=== PATIENT | male | born 1995 | race Caucasian/White ===

== ENCOUNTER 2016-11-29 18:27 | Emergency (ER) | payer OTHER ==
[~2016-11-29] VITALS: Ht 180.3 cm; Wt 96.5 kg
[2016-11-29 18:31] VITALS: TEMP 36.3; Ht 180.3 cm; Wt 96.5 kg
[2016-11-29] MEDS ORDERED: SODIUM CHLORIDE 0.9% 1000ML 1,000 ML IV STA ×2 (20:05→20:13)
--- NOTE | 2016-11-29 20:12 | EMERGENCY ROOM VISIT NOTE ---
History Report prepared by Kylah: Maribell Sotelo Under the Supervision of: Dr. Rajesh Bingham D.O. First contact with patient: 20:06 Chief Complaint: ABDOMINAL PAIN Stated Complaint: INTENSE PAIN IN LOWER LEFT ABDOMEN Nursing Triage Summary: pt reports lower left abd pain started yetserday worse this am upon waking getting worse. denies any n/v/c/d/ History of Present Illness The patient is a 21 year old male who presents to the Emergency Room with complaints of worsening left abdominal pain beginning last night. The patient states he had to sit down on a bench while walking to class because of his abdominal pain. He states that moving exacerbates the pain. The patient denies back pain, testicular pain, and fevers. The patient reports being constipated yesterday. He states that he drinks alcohol, but denies tobacco use. The patient denies a history of an appendectomy. Source of History: patient Onset: last night Position: abdomen Timing: worsening Modifying Factors (Worsening): movement Associated Symptoms: No fevers, No back pain Note: also denies: testicular pain Review of Systems See HPI for pertinent positives & negatives. A total of 10 systems reviewed and were otherwise negative. Past Medical & Surgical Medical Problems: (1) No active medical problems Family History No pertinent family history Social History Smoking Status: Never Smoker Alcohol Use: occasionally Housing Status: lives with friends Occupation Status: [employer] student Current/Historical Medications No Active Prescriptions or Reported Meds Allergies Coded Allergies: No Known Allergies (Unverified , 11/29/16) Physical Exam Vital Signs Date Time Temp Pulse Resp B/P (MAP) Pulse Ox O2 Delivery O2 Flow Rate FiO2 11/29/16 23:58 77 16 151/77 98 11/29/16 22:53 91 20 173/92 96 Room Air 11/29/16 20:36 85 11/29/16 20:30 78 18 14/89 98 Room Air 11/29/16 18:31 36.3 78 18 152/84 97 Room Air Physical Exam GENERAL: Patient is awake, alert, and in no acute distress. Patient is resting comfortably and showing no signs of anxiety EYES: The conjunctivae are clear. The pupils are round and reactive. EARS, NOSE, MOUTH AND THROAT: The nose is without any evidence of any deformity. Mucous membranes are moist tongue is midline NECK: The neck is nontender and supple. RESPIRATORY: Normal respiratory effort is noted there is no evidence of wheezing rhonchi or rales CARDIOVASCULAR: Regular rate and rhythm noted there no murmurs rubs or gallops normal S1 normal S2 GASTROINTESTINAL: The abdomen is mildly distended with significant periumbilical tenderness to palpation. Mild guarding in left lower quadrant and suprapubic region. BACK: No midline tenderness or or step-off noted range of motion in flexion extension as well as rotation no signs of muscle spasm noted MUSCULOSKELETAL/EXTREMITIES: There is no evidence of gross deformity full range of motion is noted in the hips and shoulders SKIN: There is no obvious evidence of any rash. There are no petechiae, pallor or cyanosis noted. NEUROLOGIC: Patient is awake alert and oriented x3 Medical Decision & Procedures ER Provider Diagnostic Interpretation: Preliminary Findings Only See Final Report For Complete Findings CT ABDOMEN & PELVIS: Inflammation adjacent to the anterior aspect of the descending colon associated with a small fat lobule (Series 2, Images 51-54) . Findings are consistent with epiploic appendagitis. No evidence of bowel obstruction, significant bowel wall thickening, free intraperitoneal air or abscess. No evidence of acute appendicitis. Small amount of free fluid in the right pelvis. Radiologist: Demetrice Michelle MD Study ready at 23:10 and initial results transmitted at 23:26 Laboratory Results 11/29/16 20:10 Red Blood Count 5.29, Mean Corpuscular Volume 89.2, Mean Corpuscular Hemoglobin 30.4, Mean Corpuscular Hemoglobin Concent 34.1, Mean Platelet Volume 11.6, Neutrophils (%) (Auto) 72.7, Lymphocytes (%) (Auto) 20.1, Monocytes (%) (Auto) 5.7, Eosinophils (%) (Auto) 1.1, Basophils (%) (Auto) 0.2, Neutrophils # (Auto) 6.68, Lymphocytes # (Auto) 1.85, Monocytes # (Auto) 0.52, Eosinophils # (Auto) 0.10, Basophils # (Auto) 0.02 11/29/16 20:10 Test 11/29/16 20:10 11/29/16 20:30 White Blood Count 9.19 K/uL (4.8-10.8) Red Blood Count 5.29 M/uL (4.7-6.1) Hemoglobin 16.1 g/dL (14.0-18.0) Hematocrit 47.2 % (42-52) Mean Corpuscular Volume 89.2 fL (80-100) Mean Corpuscular Hemoglobin 30.4 pg (25-34) Mean Corpuscular Hemoglobin Concent 34.1 g/dl (32-36) Platelet Count 168 K/uL (130-400) Mean Platelet Volume 11.6 fL (7.4-10.4) Neutrophils (%) (Auto) 72.7 % Lymphocytes (%) (Auto) 20.1 % Monocytes (%) (Auto) 5.7 % Eosinophils (%) (Auto) 1.1 % Basophils (%) (Auto) 0.2 % Neutrophils # (Auto) 6.68 K/uL (1.4-6.5) Lymphocytes # (Auto) 1.85 K/uL (1.2-3.4) Monocytes # (Auto) 0.52 K/uL (0.11-0.59) Eosinophils # (Auto) 0.10 K/uL (0-0.5) Basophils # (Auto) 0.02 K/uL (0-0.2) RDW Standard Deviation 41.8 fL (36.4-46.3) RDW Coefficient of Variation 12.8 % (11.5-14.5) Immature Granulocyte % (Auto) 0.2 % Immature Granulocyte # (Auto) 0.02 K/uL (0.00-0.02) Anion Gap 7.0 mmol/L (3-11) Est Creatinine Clear Calc Drug Dose 148.9 ml/min Estimated GFR () 135.5 Estimated GFR (Non- 116.9 BUN/Creatinine Ratio 24.4 (10-20) Calcium Level 9.2 mg/dl (8.5-10.1) Total Bilirubin 0.3 mg/dl (0.2-1) Direct Bilirubin < 0.1 mg/dl (0-0.2) Aspartate Amino Transf (AST/SGOT) 18 U/L (15-37) Alanine Aminotransferase (ALT/SGPT) 27 U/L (12-78) Alkaline Phosphatase 83 U/L (45-117) Total Protein 7.6 gm/dl (6.4-8.2) Albumin 4.2 gm/dl (3.4-5.0) Lipase 137 U/L (73-393) Urine Color YELLOW Urine Appearance CLEAR (CLEAR) Urine pH 6.5 (4.5-7.5) Urine Specific Lutz 1.025 (1.000-1.030) Urine Protein NEG (NEG) Urine Glucose (UA) NEG (NEG) Urine Ketones NEG (NEG) Urine Occult Blood NEG (NEG) Urine Nitrite NEG (NEG) Urine Bilirubin NEG (NEG) Urine Urobilinogen NEG (NEG) Urine Leukocyte Esterase SMALL (NEG) Urine WBC (Auto) 10-30 /hpf (0-5) Urine RBC (Auto) 0-4 /hpf (0-4) Urine Hyaline Casts (Auto) 0 /lpf (0-5) Urine Epithelial Cells (Auto) 10-20 /lpf (0-5) Urine Bacteria (Auto) NEG (NEG) Laboratory results per my review. Medications Administered Medications (Trade) Dose Ordered Sig/Elías Route Start Time Stop Time Status Last Admin Dose Admin Sodium Chloride 1,000 ml @ 200 mls/hr Q5H STAT IV 11/29/16 20:05 11/30/16 01:04 DC 11/29/16 22:39 200 MLS/HR Sodium Chloride 1,000 ml @ 999 mls/hr Q1H1M STAT IV 11/29/16 20:13 11/29/16 21:13 DC 11/29/16 20:30 999 MLS/HR ED Course 2002: The patient was evaluated in room B10. A complete history and physical examination were performed. 2005: Ordered Sodium Chloride 1,000 ml @ 200 mls/hr IV. 2013: Ordered Sodium Chloride 1,000 ml @ 999 mls/hr IV. 2325: I updated the patient on his results. 2340: Upon reevaluation, the patient is resting. I discussed the results and treatment plan with him. He verbalized agreement of the treatment plan. He was discharged home. Medical Decision Differential diagnosis: Etiologies such as appendicitis, diverticulitis, PUD, biliary pathology, UTI, pancreatitis, obstruction, mesenteric ischemia, aortic pathology, infections, inflammatory bowel disease, renal colic, as well as others were entertained. Nursing notes reviewed. The patient is a 21-year-old male who presented to the emergency department for an evaluation of left-sided abdominal pain. The patient very significant left- sided abdominal pain and I felt was exam was consistent with significant guarding. For this reason CT abdomen and pelvis was obtained. The patient did not have an elevated white blood cell count. He was treated with IV fluids in the emergency department and did not wish to have any pain medication. I discussed the patient's laboratory radiographic studies with him and his family members. At this time he was found have signs of epiploic appendagitis on CAT scan. He was encouraged to rest and avoid any strenuous activity. He was encouraged to follow-up with [facility] [address] in a few days for reevaluation but return to the emergency department immediately if symptoms change worsen or need arises. Medication Reconcilliation Current Medication List: was personally reviewed by me Blood Pressure Screening Patient's blood pressure: Elevated blood pressure Blood pressure disposition: Elevated BP felt to be situational Impression Primary Impression: Abdominal pain, left lower quadrant Additional Impression: Epiploic appendagitis Scribe Attestation The scribe's documentation has been prepared under my direction and personally reviewed by me in its entirety. I confirm that the note above accurately reflects all work, treatment, procedures, and medical decision making performed by me. Departure Information Dispostion Home / Self-Care Prescriptions No Active Prescriptions or Reported Meds Referrals No Doctor, Assigned (PCP) Forms HOME CARE DOCUMENTATION FORM, IMPORTANT VISIT INFORMATION, School Instructions, Work Instructions Patient Instructions Abdominal Pain, My [facility] Additional Instructions Continue using Motrin and Tylenol as directed for pain. Call [facility] to schedule a follow-up appointment. Rest and avoid any strenuous activity. Return to the emergency department immediately if symptoms change worsen or the need arises. Epiploic appendagitis MANAGEMENT There are limited data from case reports to guide the management of patients with epiploic appendagitis. Conservative management Patients can be managed conservatively with oral anti- inflammatory medications (eg, ibuprofen 600 mg PO every eight hours for four to six days) and if needed a short course of opiates (acetaminophen/codeine 300/30 every six hours) for four to seven days [11,31-34]. Anti-inflammatories provide analgesia but probably do not modify the disease course. Patients usually do not require hospitalization or antibiotics [35]. (See 'Natural history and disease course' below.) Surgery We reserve surgical management for patients whose symptoms fail to improve with conservative management, those with new or worsening symptoms (eg, high fever, progressive pain, nausea, vomiting, or inability to tolerate an oral diet), or complications (eg, intussusception, bowel obstruction, abscess) that cannot be managed nonoperatively. The inflamed appendage should be ligated and resected [36]. NATURAL HISTORY AND DISEASE COURSE Epiploic appendagitis is a benign and self-limiting condition. Complete resolution without surgical intervention usually occurs between 3 to 14 days [11 ,27,31,32]. The risk of recurrence has not been described but is probably very low. Rarely, inflamed appendages can adhere to the abdominal wall or other viscera predisposing to intestinal obstruction and intussusception [37]. Inflamed and necrotic appendages can also rarely progress to abscess formation. There are other less common conditions affecting the epiploic appendices. They can slide into a femoral, umbilical, or inguinal hernia sac where they may remain without causing symptoms or (less commonly) incarcerate with or without torsion [12,38]. The appendices can also calcify, cast off, and lie free as foreign bodies (corpora aliena) in the peritoneal cavity or become surrounded by omental adhesions [19]. Epiploic appendages are thought to represent the most frequent source of intraperitoneal loose bodies, which are usually found in the pelvis [39]. These may become secondarily attached elsewhere in the abdomen and can be confused with a neoplastic process. Problem Qualifiers
[2016-11-29 20:26] LABS: BASO % 0.2 %; BASO ABS # 0.02 K/uL (0-0.2); COMPLETE YES; EOS % 1.1 %; HEMATOCRIT 47.2 % (42-52); IG% 0.2 %; LYMPH % 20.1 %; LYMPH ABS # 1.85 K/uL (1.2-3.4); MEAN CELL VOLUME 89.2 fL (80-100); MEAN CORPUSCULAR HEMOGLOBIN 30.4 pg (25-34); MEAN CORPUSCULAR HGB CONC 34.1 g/dl (32-36); MEAN PLATELET VOLUME 11.6 fL (7.4-10.4); MONO % 5.7 %; NEUT % 72.7 %; PLATELET COUNT 168 K/uL (130-400); RED BLOOD COUNT 5.29 M/uL (4.7-6.1); WHITE BLOOD COUNT 9.19 K/uL (4.8-10.8)
[2016-11-29 20:44] LABS: MANUAL MICROSCOPIC REQUIRED? NO; REVIEW REQ? NO; URINE APPEARANCE CLEAR (CLEAR); URINE BILIRUBIN NEG (NEG); URINE COLOR YELLOW; URINE NITRITE NEG (NEG); URINE PH 6.5 (4.5-7.5); URINE SPECIFIC GRAVITY 1.025 (1.000-1.030); UROBILINOGEN NEG (NEG); ZZUR CULT IF INDIC CLEAN CATCH YES
[2016-11-29 20:44] LABS: BLOOD UREA NITROGEN 23 mg/dl (7-18); BUN/CREATININE RATIO 24.4 (10-20); CALCIUM 9.2 mg/dl (8.5-10.1); CARBON DIOXIDE 25 mmol/L (21-32); CHLORIDE 109 mmol/L (98-107); CREATININE 0.93 mg/dl (0.60-1.40); GLUCOSE 99 mg/dl (70-99); POTASSIUM 3.8 mmol/L (3.5-5.1); SODIUM 141 mmol/L (136-145)
[2016-11-29 20:47] LABS: ALKALINE PHOSPHATASE 83 U/L (45-117); ALT/SGPT 27 U/L (12-78); AST/SGOT 18 U/L (15-37)
[2016-11-29] MEDS ORDERED: OPTIRAY 320 IV PRN (22:45)
[2016-11-29 23:58] VITALS: BP 151/77; PULSE 77; O2SAT 98
--- NOTE | 2016-11-30 07:05 | DIAGNOSTIC IMAGING REPORT ---
ABD/PELVIS IV AND ORAL CONT CLINICAL HISTORY: 21 years-old Male presenting with LLq pain. TECHNIQUE: Multidetector CT of the abdomen and pelvis was performed after the administration of oral and intravenous contrast. IV contrast: 116 mL of Optiray 320. A dose lowering technique was used consistent with the principles of ALARA (as low as reasonably achievable). COMPARISON: None. CT DOSE (mGy.cm): The estimated cumulative dose is 505.95 mGy.cm. FINDINGS: [employer] topogram: Unremarkable. Lung bases: Minimal dependent changes likely atelectasis. Normal heart size. No pericardial or pleural effusion. Liver: Normal morphology. No liver lesion. Patent hepatic vasculature. Biliary: No intrahepatic or extrahepatic biliary ductal dilatation. Normal gallbladder. Pancreas: Normal. Spleen: Normal. Adrenal glands: Normal. Kidneys and ureters: Normal. No hydronephrosis. Bladder: Normal. Pelvic organs: Prostate and seminal vesicles normal. Bowel: Along the anterior aspect of the descending colon is a focus of central fat density with surrounding thin rim of soft tissue density and fat infiltration consistent with epiploic appendagitis. Mild stool burden in the descending and sigmoid colon. Normal appendix. No bowel obstruction. No significant bowel wall thickening. Peritoneal cavity: Trace free fluid in the paracolic gutters, likely reactive. Lymph nodes: No enlarged lymph nodes in the abdomen or pelvis. Vasculature: Aorta and IVC patent and normal in caliber. Abdominal wall: Normal. Musculoskeletal: Normal. IMPRESSION: 1. Fundus consistent with epiploic appendagitis along the descending colon. No evidence of bowel inflammation. No bowel obstruction. Electronically signed by: Abdi Ford M.D. 11/30/2016 7:04 AM Dictated Date/Time: 11/30/2016 6:58 AM
--- NOTE | 2016-12-01 17:13 | Pharmacy Progress Note ---
ED Pharmacist Culture FollowUp Date of Service: Dec 01, 2016. Patient presenting with abdominal pain no urinary symptoms. Grew gardnerella in urine culture. Discussed with Dr. Pérez. Since no urinary symptoms and likely contaminate from sexual intercourse, no need to treat at this time.
== END 2016-11-29 23:58 | disposition home or self-care (01) ==
LOC: C.EDB 18:29
DX: R10.32 Left lower quadrant pain (principal); K63.89 Other specified diseases of intestine; Q43.8 Other specified congenital malformations of intestine